=== PATIENT | female | born 1990 | race Two or more races ===

== ENCOUNTER 2017-12-01 10:26 | Outpatient (CLI) | payer OTHER ==
[~2017-12-01 10:26] MED LIST: OSEL75CA PO
== END 2017-12-01 10:35 | disposition home or self-care (01) ==
LOC: LAB 10:26
DX: N91.2 Amenorrhea, unspecified (principal)

== ENCOUNTER 2017-12-27 10:50 | Outpatient (CLI) | payer OTHER | END 2017-12-27 13:32 | disposition home or self-care (01) | LOC: LAB 10:50 | DX: Z13.0 Encounter for screening for diseases of the blood and blood-forming organs and certain disorders involving the immune mechanism (principal) ==

== ENCOUNTER 2018-02-23 07:19 | Outpatient (CLI) | payer OTHER | END 2018-02-23 07:20 | disposition home or self-care (01) | LOC: LAB 07:19 | DX: Z31.430 Encounter of female for testing for genetic disease carrier status for procreative management (principal); Z31.5 Encounter for procreative genetic counseling; O09.892 Supervision of other high risk pregnancies, second trimester ==

== ENCOUNTER 2018-03-10 11:20 | Outpatient (CLI) | payer OTHER | END 2018-03-10 11:23 | disposition home or self-care (01) | LOC: SONOGRAMA 11:20 | DX: O36.80X0 Pregnancy with inconclusive fetal viability, not applicable or unspecified (principal) ==

== ENCOUNTER 2018-06-22 07:50 | Outpatient (CLI) | payer OTHER | END 2018-06-22 18:25 | disposition home or self-care (01) | LOC: LAB 07:50 | DX: O09.892 Supervision of other high risk pregnancies, second trimester (principal); O16.3 Unspecified maternal hypertension, third trimester; Z11.4 Encounter for screening for human immunodeficiency virus [HIV] ==

== ENCOUNTER 2018-07-31 00:37 | Inpatient (IN) | payer OTHER ==
[~2018-07-31] VITALS: Ht 160 cm; Wt 3.2 kg
[~2018-07-31 00:37] MED LIST changes: -PRENATAL FORMU1 EAC1 PO
[2018-07-31] MEDS ORDERED: PRENATAL FORMU1 EAC1 PO (08:28)
== END 2018-08-03 14:59 | disposition home or self-care (01) | DRG 788 ==
LOC: LDR 00:37 → OB/GYN 00:37 → RECOVERY 08-04 11:00
PROVIDERS: ADMIT Obstetrics & Gynecology
PROC: 3E033VJ Introduction of Other Hormone into Peripheral Vein, Percutaneous Approach (ICD-10-PCS; 2018-07-31)
PROC: 4A1HXCZ Monitoring of Products of Conception, Cardiac Rate, External Approach (ICD-10-PCS; 2018-07-31)
PROC: 10D00Z1 Extraction of Products of Conception, Low, Open Approach (ICD-10-PCS; principal; 2018-07-31 14:15)
DX: O62.0 Primary inadequate contractions (principal); Z3A.39 39 weeks gestation of pregnancy; Z37.0 Single live birth

== ENCOUNTER → 2018-07-31 | Outpatient (CLI) | payer OTHER ==
[~2018-07-31] MED LIST changes: +PRENATAL FORMU1 EAC1 PO
== END | disposition still patient (30) ==
LOC: OBS/DEL 00:24
DX: O48.0 Post-term pregnancy (principal); Z34.03 Encounter for supervision of normal first pregnancy, third trimester

== ENCOUNTER → 2020-02-02 11:06 | Outpatient (CLI) | payer OTHER ==
[~2020-02-02 11:06] MED LIST changes: +PRENATAL FORMU1 EAC1 PO
== END | disposition home or self-care (01) ==
LOC: LAB 11:06 → CERTIFICAD 11:06
PROVIDERS: ATTEND Obstetrics & Gynecology
DX: E03.8 Other specified hypothyroidism (principal); I10 Essential (primary) hypertension; Z00.00 Encounter for general adult medical examination without abnormal findings; E78.00 Pure hypercholesterolemia, unspecified; N39.0 Urinary tract infection, site not specified; Z11.4 Encounter for screening for human immunodeficiency virus [HIV]; E55.9 Vitamin D deficiency, unspecified; Z21 Asymptomatic human immunodeficiency virus [HIV] infection status; R79.89 Other specified abnormal findings of blood chemistry; Z11.1 Encounter for screening for respiratory tuberculosis

== ENCOUNTER → 2020-02-04 | Outpatient (CLI) | payer OTHER | END | disposition home or self-care (01) | LOC: LAB 12:12 | PROVIDERS: ATTEND Emergency Medicine | DX: Z20.828 Contact with and (suspected) exposure to other viral communicable diseases (principal) ==

== ENCOUNTER 2020-02-10 11:01 | Outpatient (CLI) | payer OTHER | END 2020-02-10 11:09 | disposition home or self-care (01) | LOC: LAB 11:01 | PROVIDERS: ATTEND General Practice | DX: N39.0 Urinary tract infection, site not specified (principal) ==

== ENCOUNTER 2020-04-08 07:32 | Outpatient (CLI) | payer OTHER | END 2020-04-08 12:42 | disposition home or self-care (01) | LOC: LAB 07:32 | DX: Z20.828 Contact with and (suspected) exposure to other viral communicable diseases (principal) ==

== ENCOUNTER 2020-04-18 08:00 | Outpatient (CLI) | payer OTHER | END 2020-04-18 15:00 | disposition home or self-care (01) | LOC: PPH VACUNA 08:00 | DX: Z23 Encounter for immunization (principal) ==

== ENCOUNTER → 2020-06-02 06:51 | Outpatient (CLI) | payer OTHER | END | disposition home or self-care (01) | LOC: LAB 06:51 | PROVIDERS: ATTEND General Practice | DX: N91.0 Primary amenorrhea (principal) ==

== ENCOUNTER 2020-06-04 13:24 | Emergency (ER) | payer OTHER ==
[~2020-06-04] VITALS: Ht 160 cm; Wt 63.5 kg
== END 2020-06-04 17:01 | disposition home or self-care (01) ==
LOC: ER 13:24
DX: O98.511 Other viral diseases complicating pregnancy, first trimester (principal); O43.891 Other placental disorders, first trimester; O26.891 Other specified pregnancy related conditions, first trimester; R50.9 Fever, unspecified; Z3A.01 Less than 8 weeks gestation of pregnancy; Z03.818 Encounter for observation for suspected exposure to other biological agents ruled out

== ENCOUNTER → 2020-06-15 | Outpatient (CLI) | payer OTHER | END | disposition home or self-care (01) | LOC: LAB 07:22 | PROVIDERS: ATTEND Obstetrics & Gynecology | DX: E55.9 Vitamin D deficiency, unspecified (principal); Z34.00 Encounter for supervision of normal first pregnancy, unspecified trimester ==

== ENCOUNTER 2020-07-06 07:29 | Outpatient (CLI) | payer OTHER | END 2020-07-06 07:55 | disposition home or self-care (01) | LOC: LAB 07:29 | DX: Z34.81 Encounter for supervision of other normal pregnancy, first trimester (principal) ==

== ENCOUNTER → 2020-07-31 18:00 | Outpatient (CLI) | payer OTHER | END | disposition home or self-care (01) | LOC: PPH VACUNA 18:00 | DX: Z23 Encounter for immunization (principal) ==

== ENCOUNTER 2020-08-07 07:29 | Outpatient (CLI) | payer OTHER | END 2020-08-07 07:50 | disposition home or self-care (01) | LOC: LAB 07:29 | DX: Z34.81 Encounter for supervision of other normal pregnancy, first trimester (principal) ==

== ENCOUNTER → 2020-08-31 | Outpatient (CLI) | payer OTHER | END | disposition home or self-care (01) | LOC: LAB 09:27 | PROVIDERS: ATTEND Obstetrics & Gynecology | DX: Z34.82 Encounter for supervision of other normal pregnancy, second trimester (principal) ==

== ENCOUNTER → 2020-09-20 | Outpatient (CLI) | payer OTHER | END | disposition home or self-care (01) | LOC: PRENATAL 15:00 | PROVIDERS: ATTEND Obstetrics & Gynecology Maternal & Fetal Medicine | DX: O35.0XX1 Maternal care for (suspected) central nervous system malformation in fetus, fetus 1 (principal); O35.3XX1 Maternal care for (suspected) damage to fetus from viral disease in mother, fetus 1; O98.512 Other viral diseases complicating pregnancy, second trimester; Z36.89 Encounter for other specified antenatal screening; Z3A.20 20 weeks gestation of pregnancy ==

== ENCOUNTER 2020-10-31 08:04 | Outpatient (CLI) | payer OTHER | END 2020-10-31 08:10 | disposition home or self-care (01) | LOC: LAB 08:04 | PROVIDERS: ATTEND Obstetrics & Gynecology | DX: Z34.00 Encounter for supervision of normal first pregnancy, unspecified trimester (principal) ==

== ENCOUNTER → 2020-11-22 | Outpatient (CLI) | payer OTHER | END | disposition home or self-care (01) | LOC: PRENATAL 09:55 | PROVIDERS: ATTEND Obstetrics & Gynecology Maternal & Fetal Medicine | DX: O26.843 Uterine size-date discrepancy, third trimester (principal); Z36.89 Encounter for other specified antenatal screening; Z3A.29 29 weeks gestation of pregnancy ==

== ENCOUNTER → 2021-01-19 | Outpatient (CLI) | payer OTHER | END | disposition home or self-care (01) | LOC: PRENATAL 14:30 | PROVIDERS: ATTEND Obstetrics & Gynecology Maternal & Fetal Medicine | DX: O26.843 Uterine size-date discrepancy, third trimester (principal); O35.0XX1 Maternal care for (suspected) central nervous system malformation in fetus, fetus 1; O36.8131 Decreased fetal movements, third trimester, fetus 1; Z36.89 Encounter for other specified antenatal screening; Z3A.37 37 weeks gestation of pregnancy ==

== ENCOUNTER 2021-05-08 08:00 | Outpatient (CLI) | payer OTHER | END 2021-05-08 08:30 | disposition home or self-care (01) | LOC: PPH VACUNA 08:00 | PROVIDERS: ATTEND Emergency Medicine Pediatric Emergency Medicine | DX: Z23 Encounter for immunization (principal) ==

== ENCOUNTER 2021-05-14 08:00 | Outpatient (CLI) | payer OTHER | END 2021-05-14 08:20 | disposition home or self-care (01) | LOC: PPH VACUNA 08:00 | PROVIDERS: ATTEND Emergency Medicine Pediatric Emergency Medicine | DX: Z23 Encounter for immunization (principal) ==

== ENCOUNTER → 2021-07-24 | Emergency (ER) | payer OTHER ==
[~2021-07-24] VITALS: Ht 160 cm; Wt 66.7 kg
== END | disposition home or self-care (01) ==
LOC: ER 17:13 → PRENATAL 12-26 09:30
DX: B34.9 Viral infection, unspecified (principal); Z20.822 Contact with and (suspected) exposure to COVID-19; R05.9 Cough, unspecified; R09.81 Nasal congestion

== ENCOUNTER 2021-11-30 08:45 | Outpatient (CLI) | payer OTHER | END 2021-11-30 15:00 | disposition home or self-care (01) | LOC: LAB 08:45 | PROVIDERS: ATTEND Internal Medicine | DX: M54.50 Low back pain, unspecified (principal); I10 Essential (primary) hypertension; Z01.810 Encounter for preprocedural cardiovascular examination; E55.9 Vitamin D deficiency, unspecified; E11.51 Type 2 diabetes mellitus with diabetic peripheral angiopathy without gangrene; E11.9 Type 2 diabetes mellitus without complications; F41.9 Anxiety disorder, unspecified; Z12.11 Encounter for screening for malignant neoplasm of colon ==

== ENCOUNTER 2021-12-26 09:32 | Outpatient (CLI) | payer OTHER | END 2021-12-26 16:23 | disposition home or self-care (01) | LOC: RAD 09:32 | PROVIDERS: ATTEND Internal Medicine | DX: N20.0 Calculus of kidney (principal) ==

== ENCOUNTER 2022-03-08 19:32 | Emergency (ER) | payer OTHER ==
[~2022-03-08] VITALS: Ht 160 cm; Wt 63.5 kg
[2022-03-08] MEDS ORDERED: DUI500 PO (21:42)
[2022-03-08] MEDS ORDERED: DICLOFENAC SODI75 MG PO (21:42)
== END 2022-03-08 21:50 | disposition home or self-care (01) ==
LOC: ER 19:32
DX: N61.0 Mastitis without abscess (principal); Z88.0 Allergy status to penicillin

== ENCOUNTER 2022-04-17 10:00 | Outpatient (CLI) | payer OTHER ==
[~2022-04-17 10:00] MED LIST changes: +DICLOFENAC SODI75 MG PO; +DUI500 PO
== END 2022-04-17 10:05 | disposition home or self-care (01) ==
LOC: PPH VACUNA 10:00
PROVIDERS: ATTEND Emergency Medicine Pediatric Emergency Medicine
DX: Z23 Encounter for immunization (principal)

== ENCOUNTER 2022-08-22 14:29 | Outpatient (CLI) | payer OTHER | END 2022-08-22 15:21 | disposition home or self-care (01) | LOC: LAB 14:29 | PROVIDERS: ATTEND Internal Medicine | DX: I10 Essential (primary) hypertension (principal); M54.50 Low back pain, unspecified; E55.9 Vitamin D deficiency, unspecified; E11.51 Type 2 diabetes mellitus with diabetic peripheral angiopathy without gangrene; E11.9 Type 2 diabetes mellitus without complications; F41.9 Anxiety disorder, unspecified; N20.0 Calculus of kidney; Z20.828 Contact with and (suspected) exposure to other viral communicable diseases ==

== ENCOUNTER 2023-04-08 12:22 | Outpatient (CLI) | payer OTHER | END 2023-04-08 12:23 | disposition home or self-care (01) | LOC: LAB 12:22 | PROVIDERS: ATTEND Internal Medicine | DX: M54.50 Low back pain, unspecified (principal); N20.0 Calculus of kidney; N39.0 Urinary tract infection, site not specified ==

== ENCOUNTER 2023-04-10 13:11 | Outpatient (CLI) | payer OTHER | END 2023-04-10 13:26 | disposition home or self-care (01) | LOC: SONOGRAMA 13:11 | PROVIDERS: ATTEND Internal Medicine | DX: R31.0 Gross hematuria (principal); N02.0 Recurrent and persistent hematuria with minor glomerular abnormality; N30.01 Acute cystitis with hematuria ==

== ENCOUNTER 2023-04-25 09:00 | Outpatient (CLI) | payer OTHER | END 2023-04-25 09:10 | disposition home or self-care (01) | LOC: PPH VACUNA 09:00 | PROVIDERS: ATTEND Emergency Medicine Pediatric Emergency Medicine | DX: Z23 Encounter for immunization (principal) | CPT/HCPCS: 90686; G0008 ==

== ENCOUNTER 2023-09-24 13:49 | Outpatient (CLI) | payer OTHER | END 2023-09-24 13:54 | disposition home or self-care (01) | LOC: TOM 13:49 | PROVIDERS: ATTEND Internal Medicine | DX: M54.50 Low back pain, unspecified (principal); N20.0 Calculus of kidney; N39.0 Urinary tract infection, site not specified; M51.06 Intervertebral disc disorders with myelopathy, lumbar region; M46.47 Discitis, unspecified, lumbosacral region ==

== ENCOUNTER → 2023-10-28 11:01 | Outpatient (CLI) | payer OTHER ==
[2023-10-31 05:06] LABS: FOLLICLE STIMULATING HORMONE 2.8 mIU/mL (.); PROGESTERONA < 0.1 ng/mL (.); PROLACTIN 6.4 ng/mL (4.8-33.4)
== END | disposition home or self-care (01) ==
LOC: LAB 11:01
PROVIDERS: ATTEND Obstetrics & Gynecology
DX: Z12.11 Encounter for screening for malignant neoplasm of colon (principal); D64.9 Anemia, unspecified; E03.8 Other specified hypothyroidism; N95.1 Menopausal and female climacteric states; C51.9 Malignant neoplasm of vulva, unspecified; A64 Unspecified sexually transmitted disease; N39.0 Urinary tract infection, site not specified; R97.8 Other abnormal tumor markers; R79.89 Other specified abnormal findings of blood chemistry; E55.9 Vitamin D deficiency, unspecified; A60.9 Anogenital herpesviral infection, unspecified

== ENCOUNTER 2023-10-28 12:56 | Outpatient (CLI) | payer OTHER | END 2023-10-28 12:58 | disposition home or self-care (01) | LOC: SONOGRAMA 12:56 | PROVIDERS: ATTEND Obstetrics & Gynecology | DX: R10.2 Pelvic and perineal pain (principal) ==

== ENCOUNTER → 2024-01-28 | Outpatient (CLI) | payer OTHER | END | disposition home or self-care (01) | LOC: PRENATAL 15:40 | PROVIDERS: ATTEND Obstetrics & Gynecology Maternal & Fetal Medicine | DX: Z76.1 Encounter for health supervision and care of foundling (principal) ==

== ENCOUNTER 2024-03-12 09:11 | Outpatient (CLI) | payer OTHER ==
[2024-03-12 09:54] LABS: HEMATOCRIT 38.7 % (36.0-45.00); HEMOGLOBIN 13.4 g/dL (12.0-15.00); MEAN CELL VOLUME 89.7 fL (80.00-100.00); MEAN CORPUSCULAR HEMOGLOBIN 31.2 pg (27.00-32.0); MEAN CORPUSCULAR HGB CONC 34.7 g/dl (32.0-36.0); PLATELET COUNT 247 K/uL (150-450); RED BLOOD COUNT 4.31 M/uL (4.00-6.00); RED CELL DISTRIBUTION WIDTH 12.8 % (11.5-14.5)
[2024-03-12 09:58] LABS: PH,URINE 5.5 (5.0-8.0); URINE APPEARANCE Clear; URINE BILIRRUBIN Negative (NEGATIVE); URINE BLOOD Small; URINE COLOR Dark Yellow; URINE GLUCOSE Negative (NEGATIVE); URINE KETONE Negative (NEGATIVE); URINE LEUKOCYTE Negative; URINE NITRATE Negative; URINE PROTEIN Negative (NEGATIVE)
[2024-03-12 09:59] LABS: URINE BACTERIA 415.7 uL (0.0-1933); URINE EPITHELIAL CELLS 9.8 uL (0.0-38.8); URINE RBC 89.3 uL (0.0-20.8); URINE WBC 5.2 uL (0.0-23.2)
[2024-03-12 10:05] LABS: URINE CAST 0.15 uL (0.0-1.40)
[2024-03-12 10:51] LABS: ALBUMIN 4.4 gm/dL (3.4-5.0); BILIRUBIN TOTAL 0.81 mg/dL (0.3-1.2); CREATININE SERUM 0.82 mg/dL (0.55-1.02); GFR 80.28; GLOBULINA 3.5 G/DL (2.4-3.5); POTASSIUM 4.1 mEq/L (3.5-5.1); T4 TOTAL 6.78 UG/DL (4.8-13.9); TOTAL PROTEIN 7.9 gm/dL (6.4-8.2); TSH 1.66 uIU/mL (0.358-3.74)
== END 2024-03-12 09:27 | disposition home or self-care (01) ==
LOC: LAB 09:11
PROVIDERS: ATTEND Internal Medicine
DX: N20.0 Calculus of kidney (principal); N39.0 Urinary tract infection, site not specified; M51.06 Intervertebral disc disorders with myelopathy, lumbar region; M46.47 Discitis, unspecified, lumbosacral region

== ENCOUNTER 2024-05-07 11:02 | Outpatient (CLI) | payer OTHER ==
[2024-05-14] MEDS ORDERED: BENZONATATE200 M1 PO (10:51)
[2024-05-14] MEDS ORDERED: NASAL MIST126 ML NASAL (10:52)
== END 2024-05-07 12:00 | disposition home or self-care (01) ==
LOC: PPH VACUNA 11:02
PROVIDERS: ATTEND Emergency Medicine Pediatric Emergency Medicine
DX: Z23 Encounter for immunization (principal)

== ENCOUNTER 2024-07-07 10:21 | Outpatient (CLI) | payer OTHER ==
[~2024-07-07 10:21] MED LIST changes: +BENZONATATE200 M1 PO; +NASAL MIST126 ML NASAL
== END 2024-07-07 10:24 | disposition home or self-care (01) ==
LOC: SONOGRAMA 10:21
PROVIDERS: ATTEND Obstetrics & Gynecology Maternal & Fetal Medicine
DX: Z12.31 Encounter for screening mammogram for malignant neoplasm of breast (principal)

== ENCOUNTER 2024-09-15 08:49 | Outpatient (CLI) | payer OTHER | END 2024-09-15 08:52 | disposition home or self-care (01) | LOC: SONOGRAMA 08:49 | PROVIDERS: ATTEND Obstetrics & Gynecology | DX: R10.2 Pelvic and perineal pain (principal) ==

== ENCOUNTER 2024-10-19 08:39 | Outpatient (CLI) | payer OTHER ==
[2024-10-19 09:51] LABS: HEMATOCRIT 38.2 % (36.0-45.00); HEMOGLOBIN 12.9 g/dL (12.0-15.00); MEAN CELL VOLUME 89.7 fL (80.00-100.00); MEAN CORPUSCULAR HEMOGLOBIN 30.3 pg (27.00-32.0); MEAN CORPUSCULAR HGB CONC 33.8 g/dl (32.0-36.0); PLATELET COUNT 229 K/uL (150-450); RED BLOOD COUNT 4.26 M/uL (4.00-6.00); RED CELL DISTRIBUTION WIDTH 12.5 % (11.5-14.5)
[2024-10-19 11:28] LABS: ALBUMIN 4.1 gm/dL (3.4-5.0); BILIRUBIN TOTAL 0.99 mg/dL (0.3-1.2); CHOL HDL RATIO 2.2 (0-5.0); CREATININE SERUM 0.78 mg/dL (0.55-1.02); GFR 84.54; GLOBULINA 3.5 G/DL (2.4-3.5); POTASSIUM 4.27 mEq/L (3.5-5.1); T4 FREE 0.94 NG/ML (0.76-1.46); T4 TOTAL 6.78 UG/DL (4.8-13.9); TOTAL PROTEIN 7.6 gm/dL (6.4-8.2); TSH 1.64 uIU/mL (0.358-3.74)
[2024-10-19 12:02] LABS: T3 TOTAL 1.02 ng/ml (0.846-2.02); VITAMIN D3 25 HYDROXY 46.18 ng/ml (30-120)
[2024-10-19 13:06] LABS: PH,URINE 6.5 (5.0-8.0); URINE APPEARANCE Clear; URINE BILIRRUBIN Negative (NEGATIVE); URINE BLOOD Small; URINE COLOR Yellow; URINE GLUCOSE Negative (NEGATIVE); URINE KETONE Negative (NEGATIVE); URINE LEUKOCYTE Negative; URINE NITRATE Negative; URINE PROTEIN Negative (NEGATIVE)
[2024-10-19 13:07] LABS: URINE BACTERIA 1066.8 uL (0.0-1933); URINE EPITHELIAL CELLS 2.3 uL (0.0-38.8); URINE RBC 62.4 uL (0.0-20.8); URINE WBC 2.5 uL (0.0-23.2)
[2024-10-19 13:41] LABS: ob NEGATIVE (NEGATIVE)
[2024-10-21 07:08] LABS: hav igm Negative (Negative); hcv Non Reactive (Non Reactive); hep b c Negative (Negative); hep b s ag Negative (Negative)
== END 2024-10-19 08:52 | disposition home or self-care (01) ==
LOC: LAB 08:39
PROVIDERS: ATTEND Obstetrics & Gynecology
DX: D64.9 Anemia, unspecified (principal); E03.8 Other specified hypothyroidism; N95.0 Postmenopausal bleeding; I10 Essential (primary) hypertension; C51.9 Malignant neoplasm of vulva, unspecified; N30.00 Acute cystitis without hematuria; E83.51 Hypocalcemia; A64 Unspecified sexually transmitted disease; N39.0 Urinary tract infection, site not specified; R97.8 Other abnormal tumor markers; R79.89 Other specified abnormal findings of blood chemistry; E55.9 Vitamin D deficiency, unspecified; A60.9 Anogenital herpesviral infection, unspecified; N20.0 Calculus of kidney; R31.9 Hematuria, unspecified; Z12.11 Encounter for screening for malignant neoplasm of colon

== ENCOUNTER → 2024-12-28 | Outpatient (CLI) | payer OTHER | END | disposition home or self-care (01) | LOC: TOM 08:03 | PROVIDERS: ATTEND Internal Medicine | DX: R31.9 Hematuria, unspecified (principal); N20.0 Calculus of kidney; R31.21 Asymptomatic microscopic hematuria ==

== ENCOUNTER → 2025-01-18 13:00 | Outpatient (CLI) | payer OTHER ==
[2025-01-18 13:39] LABS: URINE APPEARANCE Clear; URINE BILIRRUBIN Negative (NEGATIVE); URINE BLOOD NHT; URINE COLOR Yellow; URINE GLUCOSE Negative (NEGATIVE); URINE KETONE Negative (NEGATIVE); URINE LEUKOCYTE Negative; URINE NITRATE Negative; URINE PROTEIN Negative (NEGATIVE)
[2025-01-18 13:41] LABS: URINE BACTERIA 641.2 uL (0.0-1933); URINE EPITHELIAL CELLS 2.8 uL (0.0-38.8); URINE RBC 35.1 uL (0.0-20.8)
[2025-01-18 13:51] LABS: URINE WBC 1.1 uL (0.0-23.2)
== END | disposition home or self-care (01) ==
LOC: LAB 13:00
PROVIDERS: ATTEND Urology
DX: N39.0 Urinary tract infection, site not specified (principal)